=== PATIENT | female | born 1980 | race African-American/Black ===

== ENCOUNTER 2016-11-20 14:50 | Emergency (ER) | payer OTHER, MEDICARE, MEDICAID ==
[2016-11-20] MEDS ORDERED: IBUPROFEN 800 MG TABLET PO ONE (15:24)
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
[2016-11-20 16:44] VITALS: BP 125/81
== END 2016-11-20 16:44 | disposition home or self-care (01) ==
LOC: ER 14:50
DX: S16.1XXA Strain of muscle, fascia and tendon at neck level, initial encounter (principal); S40.011A Contusion of right shoulder, initial encounter; M54.2 Cervicalgia; M25.511 Pain in right shoulder; V87.7XXA Person injured in collision between other specified motor vehicles (traffic), initial encounter
CPT/HCPCS: 72125; 99284

== ENCOUNTER 2019-07-05 09:55 | Emergency (ER) | payer MEDICARE, MEDICAID ==
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
[2019-07-05 12:18] VITALS: BP 135/90
== END 2019-07-05 12:28 | disposition home or self-care (01) ==
LOC: ER 09:55
DX: M25.562 Pain in left knee (principal); S00.81XA Abrasion of other part of head, initial encounter; R51 Headache; Y00.XXXA Assault by blunt object, initial encounter; Y92.009 Unspecified place in unspecified non-institutional (private) residence as the place of occurrence of the external cause; I10 Essential (primary) hypertension
CPT/HCPCS: 70486; 99284